=== PATIENT | female | born 1955 | race Caucasian/White ===

== ENCOUNTER 2024-10-25 09:30 | Emergency (ER) | payer MEDICARE ==
[~2024-10-25] VITALS: Ht 167.6 cm; Wt 74.0 kg
[2024-10-25] MEDS ORDERED: TURMERIC CURCU500 MG PO (10:24)
[2024-10-25] MEDS ORDERED: ELIQUIS5 MG PO (11:32)
[2024-10-25] MEDS ORDERED: APIXABAN 5 MG TAB PO ONE (11:45)
[2024-10-25 11:56] VITALS: BP 126/90
== END 2024-10-25 11:55 | disposition home or self-care (01) ==
LOC: ED 09:30
DX: I80.02 Phlebitis and thrombophlebitis of superficial vessels of left lower extremity (principal)
CPT/HCPCS: 93971; 99283-25